=== PATIENT | male | born 1990 | race Caucasian/White ===

== ENCOUNTER 2016-10-17 21:06 | Emergency (ER) | payer SELFPAY ==
[~2016-10-17] VITALS: Ht 188 cm; Wt 64.5 kg
[~2016-10-17 21:06] MED LIST: ALBU8.5H5 IH; LORA-186 PO
[2016-10-17 21:39] VITALS: Ht 188 cm; Wt 64.5 kg
[2016-10-17] MEDS ORDERED: IBUP-1542 PO (22:35)
[2016-10-17] MEDS ORDERED: ONDA4TAB14 PO (22:35)
[2016-10-17] MEDS ORDERED: DICY10CA60 PO (22:35)
--- NOTE | 2016-10-17 22:48 | ERD ---
ER Documentation Chief Complaint Date/Time DATE: 10/17/16 TIME: 22:46 Chief Complaint diffuse abd pain with n/v/d started 2 days ago HPI 28-year-old male presents in emergency department for complaints of generalized abdominal pain nausea vomiting and diarrhea started 2 days ago. Patient last episode of vomiting was yesterday, did not have any vomiting episodes today. Patient had 2 episodes of diarrhea today. Patient is complaining of generalized abdominal pain cramping pain 4/10 scale, accompanied with those symptoms. Patient states that it is intermittent. Patient denies any pain at this time. Patient denies any fever or chills. Patient denies any recent travels. Patient denies any sick contacts. ROS All systems reviewed and are negative except as per history of present illness. Medications Home Meds Active Scripts Ibuprofen* (Motrin*) 600 Mg Tab, 600 MG PO Q6H Y for PAIN AND OR ELEVATED TEMP, #30 TAB Prov:ALONSO COOPER TISSUE SPECIALIST 10/17/16 Ondansetron (Ondansetron Odt) 4 Mg Tab.rapdis, 4 MG PO Q8 Y for NAUSEA AND/OR VOMITING, #30 TAB Prov:ALONSO COOPER NP 10/17/16 Dicyclomine Hcl* (Bentyl*) 10 Mg Capsule, 10 MG PO QID, #20 CAP Prov:ALONSO COOPER TISSUE SPECIALIST 10/17/16 Albuterol Sulfate* (Albuterol Sulfate* HFA) 8.5 Gm Hfa.aer.ad, 2 PUFF IH Q6, #1 EA Prov:CASTILLO LEE DO 02/08/15 Loratadine* (Claritin*) 10 Mg Tablet, 10 MG PO DAILY, #14 TAB Prov:CASTILLO LEE DO 02/08/15 Allergies Allergies: Coded Allergies: morphine (Verified Allergy, Unknown, EYE REDNESS/ITCHINESS, 02/08/15) PMhx/Soc Medical and Surgical Hx: pt denies Surgical Hx Hx Neurological Disorder: No Hx Respiratory Disorders: Yes (asthma) Hx Cardiac Disorders: No Hx Psychiatric Problems: No Hx Miscellaneous Medical Probl: No Hx Alcohol Use: Yes (SOCIALLY ) Hx Substance Use: No Hx Tobacco Use: No Smoking Status: Never smoker FmHx Family History: No coronary disease, No diabetes, No other Physical Exam Vitals Vital Signs Date Time Temp Pulse Resp B/P Pulse Ox O2 Delivery O2 Flow Rate FiO2 10/17/16 21:39 97.7 79 20 132/76 96 Physical Exam GENERAL: The patient is well developed and appropriate for usual state of health, in no apparent distress. CHEST: Clear to auscultation bilaterally. There are no rales, wheezes or rhonchi. HEART: Regular rate and rhythm. No murmurs, clicks, rubs or gallops. No S3 or S4. ABDOMEN: Soft, nontender and nondistended. Hyperactive bowel sounds. No rebound or guarding. No gross peritonitis. No gross organomegaly or masses. No Maynadr sign or McBurney point tenderness. BACK: No midline or flank tenderness. EXTREMITIES: Equal pulses bilaterally. There is no peripheral clubbing, cyanosis or edema. No focal swelling or erythema. Full range of motion. Grossly neurovascularly intact. NEURO: Alert and oriented. Cranial nerves 2-12 intact. Motor strength in all 4 extremities with 5/5 strength. Sensation grossly intact. Normal speech and gait. SKIN: There is no apparent rash or petechia. The skin is warm and dry. HEMATOLOGIC AND LYMPHATIC: There is no evidence of excessive bruising or lymphedema. No gross cervical, axillary, or inguinal lymphadenopathy. Procedures/MDM Medical Decision Making: Patient's symptoms of abdominal pain and vomiting and diarrhea most likely consistent with viral gastroenteritis. No active vomiting at this time. No symptoms of dehydration. Patient does not complain of any pain at this time. There is low suspicion for abdominal emergencies at this time. Patients abdominal exam is normal at this time. Radiology exams or laboratory testing not indicated at this time. There is low suspicion for appendicitis, cholecystitis, abdominal aortic aneurysms or peritonitis at this time. There is low suspicion for sepsis. Patient appears well and is hemodynamically stable. Disposition: Home. Condition: Stable Prescription Bentyl, Zofran, ibuprofen Instructions: Patient is advised to take medications as prescribed. Patient is advised to rest, increase fluid intake and do brat diet for next 1-2 days and progress as tolerated. Patient is advised that if symptoms are worse, severe abdominal pain, uncontrolled vomiting, high fever, severe flank pain, worst signs and symptoms, to return to the emergency department immediately. Otherwise, patient can follow up with primary care doctor in 5-7 days. Departure Diagnosis: Primary Impression: Viral gastroenteritis Condition: Stable Patient Instructions: Gastroenteritis, Viral (6Y-Adult) ALONSO COOPER NP Oct 17, 2016 22:48
== END 2016-10-17 22:56 | disposition home or self-care (01) ==
LOC: FTE 21:06
DX: A08.4 Viral intestinal infection, unspecified (principal); J45.909 Unspecified asthma, uncomplicated
CPT/HCPCS: 99284